=== PATIENT | female | born 1945 | race Caucasian/White ===

== ENCOUNTER → 2021-12-26 11:32 | Outpatient (CLI) | payer MEDICARE, SELFPAY ==
[2021-12-26 20:18] LABS: COVID19 - ORCAS (NP or Nasal) Negative (Negative)
== END ==
PROVIDERS: PCP Family Medicine; Visit Provider Physician Assistant
DX: Z20.822 Contact with and (suspected) exposure to COVID-19 (principal)
CPT/HCPCS: U0003

== ENCOUNTER → 2022-04-22 09:14 | Outpatient (CLI) | payer MEDICARE, SELFPAY ==
[2022-04-22 19:39] LABS: Add Manual Diff / Slide Review NO; Basophils Absolute Auto 0 /uL (0-100); Basophils Percent Auto 0.5 % (0-2); Eosinophils Absolute Auto 200 /uL (0-450); Eosinophils Percent Auto 2.7 % (2-4); Hematocrit 40.5 % (36-46); Hemoglobin 13.8 g/dL (12.0-16.0); Lymphocytes Absolute Auto 3000 /uL (1100-4500); Lymphocytes Percent Auto 44.6 % (25-40); Mean Corpuscular HGB Conc 34.1 % (30-36); Mean Corpuscular Hemoglobin 27.8 PG (26-34); Mean Corpuscular Volume 81.6 fL (80-100); Monocytes Absolute Auto 600 /uL (0-900); Monocytes Percent Auto 8.2 % (3-14); Neutrophils Absolute Auto 3000 /uL (1500-7000); Platelet Count 213 X10^3/uL (150-400); Red Blood Cell Count 4.96 X10^6/uL (4.0-5.2); Red Cell Distribution Width 12.9 % (11.6-14.8); White Blood Cell Count 6.8 X10^3/uL (4.5-11.0)
[2022-04-22 19:48] LABS: Hemoglobin A1C% w Est Avg Glu 5.2 % (4.0-6.0)
[2022-04-22 19:54] LABS: Alanine Aminotransferase 17 IU/L (<35); Albumin Globulin Ratio 1.3 (1.0-2.8); Alkaline Phosphatase 89 U/L (38-126); Aspartate Aminotransferase 33 IU/L (14-36); BUN Creatinine Ratio 37.5 (6-22); Bilirubin Total 0.3 mg/dL (0.2-1.3); Blood Urea Nitrogen 27 mg/dL (7-17); Calcium 9.2 mg/dL (8.4-10.2); Carbon Dioxide 25 mmol/L (22-32); Chloride 103 mmol/L (98-107); Cholesterol 197 mg/dL (140-199); Estimated Glomerular Filt Rate > 60 mL/min (>60); Globulin 3.2 g/dL (1.7-4.1); Glucose 93 mg/dL (80-110); HDL Cholesterol 51 mg/dL (40-60); HEMOLYSIS < 15 (0-50); LDL Cholesterol Calculated 119 mg/dL (<100); Potassium 3.8 mmol/L (3.4-5.1); Sodium 138 mmol/L (137-145); Total Protein 7.2 g/dL (6.3-8.2); Triglycerides 136 mg/dL (35-150)
[2022-04-22 20:04] LABS: Vitamin D 25 Hydroxy (D3) 54.9 ng/mL (30.0-100.0)
[2022-04-22 20:35] LABS: Vitamin B12 652 pg/mL (239-931)
[2022-04-22 20:55] LABS: TSH w/ Reflex to FT4 1.96 uIU/mL (0.47-4.68)
== END ==
PROVIDERS: PCP Family Medicine; Visit Provider Family Medicine
DX: Z85.89 Personal history of malignant neoplasm of other organs and systems (principal); E78.5 Hyperlipidemia, unspecified; E03.9 Hypothyroidism, unspecified; E55.9 Vitamin D deficiency, unspecified; R73.03 Prediabetes; R60.0 Localized edema
CPT/HCPCS: 80053; 80061; 82306; 82607; 83036; 84443; 85025

== ENCOUNTER → 2022-12-04 11:14 | Outpatient (CLI) | payer MEDICARE, SELFPAY ==
[2022-12-04 19:29] LABS: Add Manual Diff / Slide Review NO; Basophils Absolute Auto 0 /uL (0-100); Basophils Percent Auto 0.3 % (0-2); Eosinophils Absolute Auto 200 /uL (0-450); Eosinophils Percent Auto 2.5 % (2-4); Hematocrit 38.9 % (36-46); Hemoglobin 13.1 g/dL (12.0-16.0); Lymphocytes Absolute Auto 2400 /uL (1100-4500); Lymphocytes Percent Auto 30.2 % (25-40); Mean Corpuscular HGB Conc 33.7 % (30-36); Mean Corpuscular Hemoglobin 26.7 PG (26-34); Mean Corpuscular Volume 79.1 fL (80-100); Monocytes Absolute Auto 600 /uL (0-900); Monocytes Percent Auto 7.5 % (3-14); Neutrophils Absolute Auto 4700 /uL (1500-7000); Neutrophils Percent Auto 59.5 % (50-75); Platelet Count 239 X10^3/uL (150-400); Red Blood Cell Count 4.92 X10^6/uL (4.0-5.2); Red Cell Distribution Width 13.6 % (11.6-14.8); White Blood Cell Count 7.9 X10^3/uL (4.5-11.0)
[2022-12-04 19:54] LABS: Alanine Aminotransferase 20 IU/L (<35); Albumin 3.9 g/dL (3.5-5.0); Albumin Globulin Ratio 1.3 (1.0-2.8); Alkaline Phosphatase 95 U/L (38-126); Aspartate Aminotransferase 28 IU/L (14-36); BUN Creatinine Ratio 49.2 (6-22); Bilirubin Total 0.5 mg/dL (0.2-1.3); Blood Urea Nitrogen 32 mg/dL (7-17); Calcium 9.3 mg/dL (8.4-10.2); Carbon Dioxide 27 mmol/L (22-32); Chloride 103 mmol/L (98-107); Cholesterol 194 mg/dL (140-199); Estimated Glomerular Filt Rate > 60 mL/min (>60); Globulin 2.9 g/dL (1.7-4.1); Glucose 101 mg/dL (80-110); HDL Cholesterol 56 mg/dL (40-60); HEMOLYSIS 16 (0-50); LDL Cholesterol Calculated 111 mg/dL (<100); Magnesium 1.8 mg/dL (1.6-2.3); Potassium 3.8 mmol/L (3.4-5.1); Sodium 137 mmol/L (137-145); Total Protein 6.8 g/dL (6.3-8.2); Triglycerides 137 mg/dL (35-150)
[2022-12-04 20:09] LABS: Vitamin D 25 Hydroxy (D3) 64.5 ng/mL (30.0-100.0)
[2022-12-04 20:22] LABS: Thyroid Stimulating Hormone 0.902 uIU/mL (0.47-4.68)
[2022-12-04 20:54] LABS: Folate 17.7 ng/mL (2.76-20.0); Vitamin B12 629 pg/mL (239-931)
[2022-12-06 09:34] LABS: x Labcorp Estim. Avg Glu (eAG) 117 mg/dL (.); x Labcorp Hemoglobin A1c 5.7 % (4.8-5.6)
[2022-12-08 18:14] LABS: Antithrombin Activity 123 % (75-135); Antithrombin Antigen 118 % (72-124); Dil Russell Viper Venom Conf 2.1 ratio (0.8-1.2); Dilute Russell Viper Venom 118.4 sec (0.0-47.0); Dilute Russell Viper Venom Mix 62.4 sec (0.0-40.4); Hexagonal Phase Phospholipid 9 sec (0-11); Lupus Reflex Interpretation Comment: (.); Protein C-Functional 159 % (73-180); Protein S-Functional 86 % (63-140)
[2022-12-12 12:35] LABS: Vitamin B2, Whole Blood 248 ug/L (137-370)
[2022-12-20 12:30] LABS: Vitamin B1 194.8 nmol/L (66.5-200.0)
== END ==
PROVIDERS: PCP Family Medicine; Visit Provider Family Medicine
DX: R00.0 Tachycardia, unspecified (principal); E03.9 Hypothyroidism, unspecified; E55.9 Vitamin D deficiency, unspecified; I26.99 Other pulmonary embolism without acute cor pulmonale; K90.9 Intestinal malabsorption, unspecified; Z98.84 Bariatric surgery status; Z79.01 Long term (current) use of anticoagulants; E78.5 Hyperlipidemia, unspecified; R29.898 Other symptoms and signs involving the musculoskeletal system
CPT/HCPCS: 80053; 80061; 81240; 81241; 82306; 82607; 82746; 83036; 83735; 84252; 84425; 84443; 85025; 85300; 85301; 85303; 85306; 85598; 85613

== ENCOUNTER → 2023-03-17 11:29 | Outpatient (CLI) | payer MEDICARE, SELFPAY ==
--- NOTE | 2023-03-17 11:32 | DI.US.S_ITS ---
PROCEDURE: US THYROID INDICATIONS: NODULES ON CHEST CT TECHNIQUE: Real-time scanning was performed of the thyroid gland, with image documentation. COMPARISON: None. FINDINGS: Right: Thyroid lobe measures 4.9 x 1.3 x 2.1 cm, and is homogeneous in echotexture. Left: Thyroid lobe measures 4.2 x 1.4 x 1.6 cm, and is homogenous in echotexture. Isthmus: 1.9 mm thick. Nodule number: 1 Location: Left inferior Size: 1.6 x 1.4 x 1.3 cm. Composition: Solid Echogenicity: Hypoechoic Shape: wider than tall. Margins: Smooth Echogenic foci: Non Total points: 4 ACR TI-RADS category: 4 Nodule number: 2 Location: Left mid Size: 0.6 x 0.4 x 0.7 cm. Composition: Solid Echogenicity: Hypoechoic Shape: wider than tall. Margins: Smooth Echogenic foci: Non Total points: 4 ACR TI-RADS category: 4 Nodule number: 3 Location: Left inferior lateral Size: 0.6 x 0.4 x 0.6 cm. Composition: solid Echogenicity: Hypoechoic Shape: wider than tall. Margins: Smooth Echogenic foci: None Total points: 4 ACR TI-RADS category: 4 Nodule number: 4 Location: Right mid Size: 1.7 x 1.1 x 1.6 cm. Composition: Predominantly solid Echogenicity: Hyperechoic Shape: wider than tall. Margins: Smooth Echogenic foci: Punctate Total points: 6 ACR TI-RADS category: 4 IMPRESSION: Multiple category 4 thyroid nodules. Best practice guidelines suggest biopsy of nodule 1 and 4 ACR TI-RADS definitions and recommendations: TI-RADS 1 (benign): 0 points. FNA not needed. TI-RADS 2 (not suspicious): 2 points. FNA not needed. TI-RADS 3 (mildly suspicious): 3 points. * FNA if 2.5 cm or larger, follow up if 1.5 cm or larger (at 1, 3, and 5 years). TI-RADS 4 (moderately suspicious): 4-6 points. * FNA if 1.5 cm or larger, follow up if 1 cm or larger (at 1, 2, 3, and 5 years). TI-RADS 5 (highly suspicious): 7 points or more. * FNA if 1 cm or larger, follow up if 0.5 cm or larger (every year for 5 years). Approved by: Brent Meek M.D. on 03/17/2023 at 18:23
--- NOTE | 2023-03-17 11:32 | DI.ECHO.S_ITS ---
[facility]---------+ [facility] +---------+ : : [address] [place] : : : : [id number] : : : : Phone: [phone]+ Echocardiogram Report + + :Name: ADDISON MAHONEY Study Date: 03/17/2023 Height: 67 in : :[facility] ReadingLocation: Weight: 240 lb : : Gender: Female BSA: 2.2 m2 : :: 1945 Age: 77 yrs BP: 154/81 mmHg: :Reason For Study: Thyroid Nodule : :Ordering Physician: Imani, : :Beena Performed By: Cecilia Woods : :Referring: Beena Diallo : + + Interpretation Summary Technically difficult study. Normal left ventricle size with ejection fraction 60-65%. No significant valvular abnormality. Procedure: A two-dimensional transthoracic echocardiogram with color flow and Doppler was performed. The study quality was technically difficult. There is no prior echocardiogram noted for this patient. A contrast injection of Definity was performed to improve assessment of LV function. The patient was in normal sinus rhythm during the exam. Left Ventricle: The left ventricle is normal in size. There is normal left ventricular wall thickness. The ejection fraction is estimated to be 60-65%. There are no focal wall motion abnormalities. Diastolic parameters suggest probable normal left ventricular diastolic function and normal filling pressures. Right Ventricle: The right ventricle is normal in size and function. Atria: The left atrial size is normal. Right atrial size is normal. There is no Doppler evidence for an interatrial shunt. Mitral Valve: The mitral valve leaflets appear mildly thickened, but open well. There is no mitral valve stenosis. There is trace mitral regurgitation. Aortic Valve: The aortic valve is trileaflet. The aortic valve opens well. There is no aortic valve stenosis. No aortic regurgitation is present. Tricuspid Valve: The tricuspid valve is normal. There is no tricuspid stenosis. There is trace tricuspid regurgitation. Pulmonic Valve: The pulmonic valve is not well visualized. There is no pulmonic valvular stenosis. There is trace pulmonic regurgitation. Great Vessels: The aortic root is normal size. The ascending aorta is normal in size. The pulmonary artery is normal size. The IVC is of normal diameter and collapses greater than 50% with a sniff. This suggests a low right atrial pressure of 3 mm Hg. Pericardium/ Pleura There is no pericardial effusion. There is no pleural effusion. MMode/2D Measurements & Calculations LVIDd: 5.0 cm LVOT diam: 1.9 cm LVIDs: 3.1 cm Ao root diam: 2.9 cm FS: 38.0 % asc Aorta Diam: 3.1 cm IVSd: 1.5 cm LVPWd: 1.0 cm LV domínguez. diameter/BSA (cm/m^2): 2.3 LV sys. diameter/BSA (cm/m^2): 1.4 LA A2 area: 19.8 cm2 RA long axis: 5.2 cm LA A4 area: 16.5 cm2 RA area: 17.6 cm2 LA length (vol): 5.5 cm RA vol: 50.6 ml LA vol: 50.9 ml RA : 23.1 ml/m2 LA vol index: 23.3 ml/m2 RVD1 (basal): 3.9 cm LVLs ap4: 5.4 cm LVLd ap2: 6.3 cm TAPSE_phl: 2.1 cm LVLs ap2: 5.1 cm Doppler Measurements & Calculations Ao V2 max: 129.0 cm/sec LVOT Max Matt: 97.6 cm/sec Ao V2 mean: 90.4 cm/sec LV V1 max P.8 mmHg Ao max P.0 mmHg LV V1 VTI: 22.5 cm Ao mean P.0 mmHg GONZALES(I,D): 2.1 cm2 Ao V2 VTI: 30.7 cm GONZALES(V,D): 2.1 cm2 sev ratio: 0.73 GONZALES indexed to BSA (cm^2/m^2): 0.95 MV E max matt: 76.4 cm/sec TR max matt: 183.5 cm/sec MV A max matt: 84.8 cm/sec TR max P.1 mmHg MV E/A: 0.90 PA V2 max: 85.2 cm/sec Med Peak E' Matt: 7.5 cm/sec PA V2 mean: 60.8 cm/sec E/E' med: 10.3 PA mean P.0 mmHg Lat Peak E' Matt: 10.8 cm/sec PA pr(Accel): 34.0 mmHg E/E' lat: 7.1 E/e' average: 8.7 MV dec time: 0.25 sec SV(LVOT): 63.8 ml AV VR_phl: 0.76 GONZALES(VTI)/BSA_phl: 0.95 MV P1/2t-pr_phl: 73.0 msec Electronically signed by: Fabian Cabrera on Reading Physician:03/17/2023 04:44 PM
== END ==
PROVIDERS: PCP Family Medicine; Referring Provider Family Medicine; Visit Provider Family Medicine
DX: E04.2 Nontoxic multinodular goiter (principal); R06.00 Dyspnea, unspecified; U09.9 Post COVID-19 condition, unspecified; R60.0 Localized edema
CPT/HCPCS: 76536; 93306

== ENCOUNTER → 2023-05-22 13:16 | Outpatient (CLI) | payer MEDICARE, SELFPAY ==
[2023-05-22 19:56] LABS: BUN Creatinine Ratio 26.3 (6-22); Blood Urea Nitrogen 21 mg/dL (7-17); Calcium 9.9 mg/dL (8.4-10.2); Carbon Dioxide 26 mmol/L (22-32); Chloride 103 mmol/L (98-107); Estimated Glomerular Filt Rate > 60 mL/min (>60); Glucose 108 mg/dL (80-110); HEMOLYSIS < 15 (0-50); Potassium 3.8 mmol/L (3.4-5.1); Sodium 139 mmol/L (137-145)
== END ==
PROVIDERS: PCP Family Medicine; Visit Provider Family Medicine
DX: Z86.711 Personal history of pulmonary embolism (principal); R06.00 Dyspnea, unspecified; Z01.812 Encounter for preprocedural laboratory examination
CPT/HCPCS: 80048

== ENCOUNTER → 2023-05-26 12:29 | Outpatient (CLI) | payer MEDICARE, SELFPAY ==
--- NOTE | 2023-05-26 | DI.CT.S_ITS ---
PROCEDURE: CT ANGIO CHEST PE PROTOCOL INDICATIONS: DYSNPEA W/HISTORY OF PULMONARY EMBOLISM TECHNIQUE: After the administration of intravenous contrast, 2 mm thick sections acquired from the pulmonary apices to the posterior costophrenic angles. 3-dimensional maximum intensity projection (MIP) coronal and sagittal reformats were then acquired through the thorax. For radiation dose reduction, the following was used: automated exposure control, adjustment of mA and/or kV according to patient size. COMPARISON: None. FINDINGS: Image quality: Excellent. Pulmonary arteries: Pulmonary arteries are normal in size, and demonstrate no intraluminal filling defects to suggest central pulmonary embolism. Lungs and pleura: Lungs are clear. No pleural effusions or pneumothorax. Central and peripheral airways are patent. Mediastinum: Heart size is normal, without pericardial effusion. No mediastinal or hilar adenopathy. Thoracic aorta is normal in caliber and enhancement. Esophagus is normal in caliber, without hiatal hernia. Bones and chest wall: No suspicious bony lesions. Ribs and thoracic spine appear intact throughout. Thyroid gland is unremarkable. No axillary or supraclavicular adenopathy. Abdomen: Visualized upper abdominal solid organs appear normal in the early arterial phase of enhancement. IMPRESSION: 1. No acute pulmonary embolus. 2. No acute pulmonary radiopacities or suspicious pulmonary nodules. Dictated by: Lucy Monaco M.D. on 05/26/2023 at 13:37 Approved by: Lucy Monaco M.D. on 05/26/2023 at 13:53
--- NOTE | 2023-05-26 13:12 | DI.MRI.S_ITS ---
PROCEDURE: MR HEAD/BRAIN WO CON INDICATIONS: memory loss, confusion TECHNIQUE: Non-contrast axial T1 spin echo, axial T2 fast spin echo, sagittal and axial FLAIR, coronal T2 fast spin echo, axial gradient echo, axial diffusion and ADC through the brain. COMPARISON: None. FINDINGS: Image quality: Excellent. CSF spaces: Ventricles appear symmetric in size and shape. Basal cisterns are patent. No extra-axial fluid collections. Brain: No intracranial bleeds or mass effects. There is cerebral volume loss for age. There are periventricular and deep white matter chronic small vessel ischemic changes. Brainstem appears normal. Diffusion-weighted images show no acute ischemic insults. No chronic ischemic insults. Normal intravascular flow voids are present. Skull and face: Calvarial bone marrow is normal in signal. Orbits are normal. Note is made of bilateral lens replacements. Sinuses: Sinuses and mastoids are clear. IMPRESSION: Brain MRI within normal limits for age, with age-appropriate brain parenchymal volume loss and chronic small vessel ischemic change. No prior territorial infarct can be seen. No findings of acute or subacute infarction can be seen. Dictated by: Jose Saunders M.D. on 05/26/2023 at 13:23 Approved by: Jose Saunders M.D. on 05/26/2023 at 13:24
== END ==
PROVIDERS: PCP Family Medicine; Referring Provider Family Medicine; Visit Provider Family Medicine
DX: R06.00 Dyspnea, unspecified (principal); Z85.89 Personal history of malignant neoplasm of other organs and systems; Z86.711 Personal history of pulmonary embolism
CPT/HCPCS: 70551; 71275; Q9967

== ENCOUNTER → 2023-08-15 10:33 | Outpatient (CLI) | payer MEDICARE, SELFPAY | LOC: RESP 10:33 | PROVIDERS: PCP Family Medicine; Referring Provider Internal Medicine Pulmonary Disease; Visit Provider Internal Medicine Pulmonary Disease | DX: R06.09 Other forms of dyspnea (principal) | CPT/HCPCS: 94060; 94726; 94729 ==

== ENCOUNTER → 2023-08-26 15:09 | Outpatient (CLI) | payer MEDICARE, SELFPAY | PROVIDERS: PCP Family Medicine; Visit Provider Family Medicine | DX: R39.89 Other symptoms and signs involving the genitourinary system (principal) | CPT/HCPCS: 87086 ==

== ENCOUNTER → 2023-10-20 14:23 | Outpatient (CLI) | payer MEDICARE, SELFPAY ==
[2023-10-20 19:19] LABS: Add Manual Diff / Slide Review NO; Basophils Absolute Auto 0 /uL (0-100); Basophils Percent Auto 0.4 % (0-2); Eosinophils Absolute Auto 100 /uL (0-450); Eosinophils Percent Auto 2.3 % (2-4); Hematocrit 31.1 % (36-46); Hemoglobin 9.9 g/dL (12.0-16.0); Lymphocytes Absolute Auto 2100 /uL (1100-4500); Mean Corpuscular HGB Conc 31.9 % (30-36); Mean Corpuscular Hemoglobin 20.9 PG (26-34); Mean Corpuscular Volume 65.6 fL (80-100); Monocytes Absolute Auto 400 /uL (0-900); Monocytes Percent Auto 6.7 % (3-14); Neutrophils Absolute Auto 3500 /uL (1500-7000); Neutrophils Percent Auto 56.6 % (50-75); Platelet Count 268 X10^3/uL (150-400); Red Blood Cell Count 4.74 X10^6/uL (4.0-5.2); Red Cell Distribution Width 17.1 % (11.6-14.8); White Blood Cell Count 6.2 X10^3/uL (4.5-11.0)
[2023-10-20 19:34] LABS: Alanine Aminotransferase 16 IU/L (<35); Albumin 3.7 g/dL (3.5-5.0); Albumin Globulin Ratio 1.3 (1.0-2.8); Alkaline Phosphatase 85 U/L (38-126); Aspartate Aminotransferase 25 IU/L (14-36); BUN Creatinine Ratio 22.9 (6-22); Bilirubin Total 0.5 mg/dL (0.2-1.3); Blood Urea Nitrogen 19 mg/dL (7-17); Calcium 9.9 mg/dL (8.4-10.2); Carbon Dioxide 24 mmol/L (22-32); Chloride 108 mmol/L (98-107); Estimated Glomerular Filt Rate > 60 mL/min (>60); Globulin 2.9 g/dL (1.7-4.1); Glucose 98 mg/dL (80-110); HEMOLYSIS < 15 (0-50); Microcytosis 1+; Potassium 3.8 mmol/L (3.4-5.1); Sodium 139 mmol/L (137-145); Total Protein 6.6 g/dL (6.3-8.2)
[2023-10-20 19:38] LABS: NT-proBNP (BNP-Adult 18+) 72 pg/mL (<450)
[2023-10-20 20:00] LABS: TSH w/ Reflex to FT4 0.51 uIU/mL (0.47-4.68)
== END ==
PROVIDERS: PCP Family Medicine; Visit Provider Family Medicine
DX: E04.1 Nontoxic single thyroid nodule (principal); R06.00 Dyspnea, unspecified; R09.02 Hypoxemia; R60.0 Localized edema
CPT/HCPCS: 80053; 83880; 84443; 85025

== ENCOUNTER → 2023-11-28 10:13 | Outpatient (CLI) | payer MEDICARE, SELFPAY ==
[2023-11-28 19:40] LABS: HEMOLYSIS < 15 (0-50); Iron 33 ug/dL (37-170)
[2023-11-28 19:43] LABS: Add Manual Diff / Slide Review NO; Basophils Absolute Auto 0 /uL (0-100); Basophils Percent Auto 0.6 % (0-2); Eosinophils Absolute Auto 200 /uL (0-450); Eosinophils Percent Auto 3.5 % (2-4); Hematocrit 30.8 % (36-46); Hemoglobin 9.8 g/dL (12.0-16.0); Lymphocytes Absolute Auto 2200 /uL (1100-4500); Mean Corpuscular HGB Conc 31.9 % (30-36); Mean Corpuscular Hemoglobin 20.5 PG (26-34); Mean Corpuscular Volume 64.4 fL (80-100); Monocytes Absolute Auto 500 /uL (0-900); Monocytes Percent Auto 8.4 % (3-14); Neutrophils Absolute Auto 2800 /uL (1500-7000); Neutrophils Percent Auto 48.5 % (50-75); Platelet Count 296 X10^3/uL (150-400); Red Blood Cell Count 4.78 X10^6/uL (4.0-5.2); Red Cell Distribution Width 17.6 % (11.6-14.8); White Blood Cell Count 5.7 X10^3/uL (4.5-11.0)
[2023-11-28 19:45] LABS: Alanine Aminotransferase 13 IU/L (<35); Albumin 4.1 g/dL (3.5-5.0); Albumin Globulin Ratio 1.6 (1.0-2.8); Alkaline Phosphatase 87 U/L (38-126); Aspartate Aminotransferase 24 IU/L (14-36); BUN Creatinine Ratio 24.4 (6-22); Bilirubin Total 0.4 mg/dL (0.2-1.3); Blood Urea Nitrogen 19 mg/dL (7-17); Calcium 9.7 mg/dL (8.4-10.2); Carbon Dioxide 27 mmol/L (22-32); Chloride 105 mmol/L (98-107); Estimated Glomerular Filt Rate > 60 mL/min (>60); Globulin 2.6 g/dL (1.7-4.1); Glucose 96 mg/dL (80-110); HEMOLYSIS < 15 (0-50); Potassium 3.8 mmol/L (3.4-5.1); Sodium 138 mmol/L (137-145); Total Protein 6.7 g/dL (6.3-8.2)
[2023-11-28 19:52] LABS: Percent Iron Saturation 7 % (15-50); Total Iron Binding Capacity 475 ug/dL (265-497); Transferrin 395 mg/dL (206-381)
[2023-11-28 19:57] LABS: Microcytosis 1+
[2023-11-28 20:20] LABS: Ferritin 7 ng/mL (11-264)
[2023-11-28 20:52] LABS: Folate > 20.0 ng/mL (2.76-20.0); Vitamin B12 Reflex MMA if <400 775 pg/mL (239-931)
== END ==
PROVIDERS: PCP Family Medicine; Visit Provider Family Medicine
DX: D50.9 Iron deficiency anemia, unspecified (principal); R63.0 Anorexia
CPT/HCPCS: 80053; 82607; 82728; 82746; 83540; 83550; 85025

== ENCOUNTER → 2024-03-04 13:17 | Outpatient (CLI) | payer MEDICARE, SELFPAY ==
[2024-03-04 20:27] LABS: Add Manual Diff / Slide Review NO; Basophils Absolute Auto 0 /uL (0-100); Basophils Percent Auto 0.4 % (0-2); Eosinophils Absolute Auto 200 /uL (0-450); Hematocrit 38.5 % (36-46); Hemoglobin 12.9 g/dL (12.0-16.0); Lymphocytes Absolute Auto 3000 /uL (1100-4500); Lymphocytes Percent Auto 50.8 % (25-40); Mean Corpuscular HGB Conc 33.5 % (30-36); Mean Corpuscular Hemoglobin 25.6 PG (26-34); Mean Corpuscular Volume 76.6 fL (80-100); Monocytes Absolute Auto 500 /uL (0-900); Monocytes Percent Auto 8.5 % (3-14); Neutrophils Absolute Auto 2200 /uL (1500-7000); Neutrophils Percent Auto 37.3 % (50-75); Platelet Count 192 X10^3/uL (150-400); Red Blood Cell Count 5.03 X10^6/uL (4.0-5.2); Red Cell Distribution Width 19.4 % (11.6-14.8); White Blood Cell Count 5.8 X10^3/uL (4.5-11.0)
[2024-03-04 20:28] LABS: BUN Creatinine Ratio 25.9 (6-22); Blood Urea Nitrogen 21 mg/dL (7-17); Calcium 9.5 mg/dL (8.4-10.2); Carbon Dioxide 25 mmol/L (22-32); Chloride 113 mmol/L (98-107); Estimated Glomerular Filt Rate > 60 mL/min (>60); Glucose 101 mg/dL (80-110); HEMOLYSIS < 15 (0-50); Potassium 4.4 mmol/L (3.4-5.1); Sodium 141 mmol/L (137-145)
[2024-03-04 20:29] LABS: HEMOLYSIS < 15 (0-50); Iron 68 ug/dL (37-170)
[2024-03-04 20:41] LABS: Percent Iron Saturation 18 % (15-50); Total Iron Binding Capacity 379 ug/dL (265-497); Transferrin 291 mg/dL (206-381)
[2024-03-04 21:02] LABS: Ferritin 13 ng/mL (11-264)
== END ==
PROVIDERS: PCP Family Medicine; Visit Provider Family Medicine
DX: Z01.812 Encounter for preprocedural laboratory examination (principal); D50.9 Iron deficiency anemia, unspecified; U09.9 Post COVID-19 condition, unspecified
CPT/HCPCS: 80048; 82728; 83540; 83550; 85025

== ENCOUNTER → 2024-07-02 11:58 | Outpatient (CLI) | payer MEDICARE, SELFPAY ==
--- NOTE | 2024-07-02 12:01 | DI.ECHO.S_ITS ---
[facility] +---------+ [facility] : : [address] : [place] : : [id number] : : Phone: [phone] Echocardiogram Report + + :Name: ADDISON MAHONEY Study Date: 07/02/2024 Height: 67 in : :[facility] ReadingLocation: Weight: 238 lb : : Gender: Female BSA: 2.2 m2 : :: 1945 Age: 78 yrs BP: 151/83 mmHg: :Reason For Study: ATRIAL FIBRILLATION : :Ordering Physician: SYLVIE, : :MARY Performed By: Arleen Anne : :Referring: MARY MERCER : + + Interpretation Summary The study quality was technically difficult. The ejection fraction is estimated to be 50-55%. There are no obvious focal wall motion abnormalities noted but poor endocardial definition reduces the sensitivity for the detection of such. There is mild tricuspid regurgitation. The right ventricular systolic pressure is estimated to be at least 32 mmHg based on an estimated right atrial pressure of 3 mm Hg. There is mild mitral regurgitation. Procedure: A two-dimensional transthoracic echocardiogram with color flow and Doppler was performed. The study quality was technically difficult. Comparison is made with the echocardiogram of 03/17/2023. The patient was in sinus rhythm with heart rates between 58-72 bpm during the exam. Left Ventricle: The left ventricle is normal in size and wall thickness. The ejection fraction is estimated to be 50-55%. There are no obvious focal wall motion abnormalities noted but poor endocardial definition reduces the sensitivity for the detection of such. Right Ventricle: The right ventricle is normal in size and function. Atria: The left atrial size is normal. Right atrial size is normal. There is no Doppler evidence for an interatrial shunt. Mitral Valve: The mitral valve leaflets appear mildly thickened, but open well. There is mild mitral regurgitation. Aortic Valve: The aortic valve is trileaflet. The aortic valve opens well. There is no aortic valve stenosis. No aortic regurgitation is present. Tricuspid Valve: The tricuspid valve is normal in structure and function. There is mild tricuspid regurgitation. The right ventricular systolic pressure is estimated to be at least 32 mmHg based on an estimated right atrial pressure of 3 mm Hg. Pulmonic Valve: The pulmonic valve leaflets are thin and pliable; valve motion is normal. There is mild pulmonic regurgitation. Great Vessels: The aortic root is normal size. The dimensions of the ascending aorta are normal. The IVC is of normal diameter and collapses greater than 50% with a sniff. This suggests a low right atrial pressure of 3 mm Hg. Pericardium/ Pleura There is no pericardial effusion. There is no pleural effusion. MMode/2D Measurements & Calculations LVIDd: 5.1 cm LVOT diam: 2.0 cm LVIDs: 3.4 cm Ao root diam: 3.0 cm FS: 33.5 % asc Aorta Diam: 3.5 cm IVSd: 0.87 cm Ao Arch Diam (Prox Trans): 2.7 cm LVPWd: 0.81 cm LV domínguez. diameter/BSA (cm/m^2): 2.4 LV sys. diameter/BSA (cm/m^2): 1.6 LA A2 area: 17.0 cm2 RA long axis: 5.6 cm LA A4 area: 20.6 cm2 RA area: 17.6 cm2 LA length (vol): 5.6 cm RA vol: 47.2 ml LA vol: 52.9 ml RA : 21.7 ml/m2 LA vol index: 24.3 ml/m2 IVC diam: 1.5 cm RVD1 (basal): 3.5 cm RVD2 (mid): 2.7 cm TAPSE: 2.2 cm Doppler Measurements & Calculations Ao V2 max: 131.5 cm/sec LVOT Max Matt: 79.0 cm/sec Ao V2 mean: 90.0 cm/sec LV V1 max P.5 mmHg Ao max P.9 mmHg LV V1 VTI: 18.8 cm Ao mean P.6 mmHg GONZALES(I,D): 2.0 cm2 Ao V2 VTI: 28.1 cm GONZALES(V,D): 1.8 cm2 sev ratio: 0.67 GONZALES indexed to BSA (cm^2/m^2): 0.94 MV E max matt: 72.3 cm/sec TR max matt: 268.3 cm/sec MV A max matt: 79.3 cm/sec TR max P.8 mmHg MV E/A: 0.91 PA V2 max: 90.5 cm/sec Med Peak E' Matt: 8.4 cm/sec PA V2 mean: 62.7 cm/sec E/E' med: 8.6 PA mean P.7 mmHg Lat Peak E' Matt: 9.9 cm/sec PA pr(Accel): 27.6 mmHg E/E' lat: 7.3 E/e' average: 7.9 MV dec time: 0.29 sec SVLVOT): 57.5 ml Reading Physician:01:38 PM
== END ==
LOC: ECHO 12:00
PROVIDERS: PCP Family Medicine; Referring Provider Internal Medicine Cardiovascular Disease; Visit Provider Internal Medicine Cardiovascular Disease
DX: I48.0 Paroxysmal atrial fibrillation (principal); I08.1 Rheumatic disorders of both mitral and tricuspid valves
CPT/HCPCS: 93306

== ENCOUNTER → 2024-10-13 10:31 | Outpatient (CLI) | payer MEDICARE, SELFPAY ==
[2024-10-13 20:17] LABS: Add Manual Diff / Slide Review NO; Basophils Absolute Auto 0 /uL (0-100); Basophils Percent Auto 0.5 % (0-2); Eosinophils Absolute Auto 500 /uL (0-450); Eosinophils Percent Auto 6.9 % (2-4); Hematocrit 40.7 % (36-46); Hemoglobin 13.9 g/dL (12.0-16.0); Lymphocytes Absolute Auto 2600 /uL (1100-4500); Lymphocytes Percent Auto 35.9 % (25-40); Mean Corpuscular HGB Conc 34.3 % (30-36); Mean Corpuscular Hemoglobin 28.8 PG (26-34); Monocytes Absolute Auto 600 /uL (0-900); Monocytes Percent Auto 7.6 % (3-14); Neutrophils Absolute Auto 3600 /uL (1500-7000); Neutrophils Percent Auto 49.1 % (50-75); Platelet Count 217 X10^3/uL (150-400); Red Blood Cell Count 4.84 X10^6/uL (4.0-5.2); Red Cell Distribution Width 13.3 % (11.6-14.8); White Blood Cell Count 7.4 X10^3/uL (4.5-11.0)
[2024-10-13 20:35] LABS: Alanine Aminotransferase 21 IU/L (<35); Albumin 3.7 g/dL (3.5-5.0); Albumin Globulin Ratio 1.4 (1.0-2.8); Alkaline Phosphatase 90 U/L (38-126); Aspartate Aminotransferase 34 IU/L (14-36); BUN Creatinine Ratio 23.5 (6-22); Bilirubin Total 0.5 mg/dL (0.2-1.3); Blood Urea Nitrogen 19 mg/dL (7-17); Calcium 9.5 mg/dL (8.4-10.2); Carbon Dioxide 25 mmol/L (22-32); Chloride 108 mmol/L (98-107); Estimated Glomerular Filt Rate > 60 mL/min (>60); Globulin 2.6 g/dL (1.7-4.1); Glucose 102 mg/dL (80-110); HEMOLYSIS 17 (0-50); Hemoglobin A1C% w Est Avg Glu 4.6 % (4.0-6.0); Potassium 4.3 mmol/L (3.4-5.1); Sodium 142 mmol/L (137-145); Total Protein 6.3 g/dL (6.3-8.2)
[2024-10-13 20:36] LABS: HEMOLYSIS < 15 (0-50); Iron 108 ug/dL (37-170)
[2024-10-13 20:44] LABS: NT-proBNP (BNP-Adult 18+) 294 pg/mL (<450)
[2024-10-13 20:53] LABS: Percent Iron Saturation 35 % (15-50); Total Iron Binding Capacity 311 ug/dL (265-497); Transferrin 289 mg/dL (206-381)
[2024-10-13 21:10] LABS: Ferritin 39 ng/mL (11-264)
== END ==
PROVIDERS: PCP Family Medicine; Visit Provider Physician Assistant Medical
DX: R63.0 Anorexia (principal); I50.9 Heart failure, unspecified; R73.03 Prediabetes; Z79.01 Long term (current) use of anticoagulants; K21.9 Gastro-esophageal reflux disease without esophagitis; E03.9 Hypothyroidism, unspecified; R09.02 Hypoxemia; R41.3 Other amnesia
CPT/HCPCS: 80053; 82728; 83036; 83540; 83550; 83880; 84443; 85025

== ENCOUNTER → 2025-06-27 10:34 | Outpatient (CLI) | payer MEDICARE, SELFPAY ==
[2025-06-27 19:08] LABS: Add Manual Diff / Slide Review NO; Hematocrit 38.4 % (36-46); Hemoglobin 13.2 g/dL (12.0-16.0); Lymphocytes Absolute Auto 2700 /uL (1100-4500); Mean Corpuscular HGB Conc 34.4 % (30-36); Mean Corpuscular Hemoglobin 29.0 PG (26-34); Mean Corpuscular Volume 84.2 fL (80-100); Platelet Count 206 X10^3/uL (150-400)
[2025-06-27 19:09] LABS: HEMOLYSIS 28 (0-50); Iron 122 ug/dL (37-170)
[2025-06-27 19:21] LABS: Alanine Aminotransferase 17 IU/L (<35); Albumin 3.7 g/dL (3.5-5.0); Albumin Globulin Ratio 1.4 (1.0-2.8); Alkaline Phosphatase 99 U/L (38-126); Blood Urea Nitrogen 27 mg/dL (7-17); Calcium 10.0 mg/dL (8.4-10.2); Carbon Dioxide 24 mmol/L (22-32); Chloride 108 mmol/L (98-107); Estimated Glomerular Filt Rate > 60 mL/min (>60); Globulin 2.7 g/dL (1.7-4.1); Glucose 98 mg/dL (70-99); HEMOLYSIS 21 (0-50); Potassium 4.2 mmol/L (3.4-5.1); Sodium 142 mmol/L (137-145); Total Protein 6.4 g/dL (6.3-8.2)
[2025-06-27 19:26] LABS: Percent Iron Saturation 36 % (15-50); Total Iron Binding Capacity 340 ug/dL (265-497); Transferrin 280 mg/dL (206-381)
[2025-06-27 19:52] LABS: Ferritin 35 ng/mL (11-264)
== END ==
PROVIDERS: PCP Family Medicine; Visit Provider Family Medicine
DX: D50.9 Iron deficiency anemia, unspecified (principal); R53.83 Other fatigue
CPT/HCPCS: 80053; 82728; 83540; 83550; 85025